=== PATIENT | female | born 1995 | race Caucasian/White ===

== ENCOUNTER 2020-05-30 07:41 | Outpatient (CLI) | payer OTHER | END 2020-05-30 07:42 | disposition home or self-care (01) | LOC: PPH VACUNA 07:41 | DX: Z23 Encounter for immunization (principal) ==

== ENCOUNTER → 2020-06-22 | Outpatient (CLI) | payer OTHER | END | disposition home or self-care (01) | LOC: PPH VACUNA | DX: Z23 Encounter for immunization (principal) ==